=== PATIENT | male | born 1935 | race Two or more races ===

== ENCOUNTER 2021-10-22 14:09 | Emergency (ER) | payer OTHER ==
[2021-10-22 14:50] VITALS: BP 152/94; PULSE 67; TEMP 97.7; BMI 27.1
== END 2021-10-22 15:50 | disposition home or self-care (01) ==
LOC: FER 14:09 → EDBD 14:09 → FER 15:50
DX: S50.11XA Contusion of right forearm, initial encounter (principal); W19.XXXA Unspecified fall, initial encounter
CPT/HCPCS: 73090-TC-RT-FY; 99283-25